=== PATIENT | male | born 1955 | race Caucasian/White ===

== ENCOUNTER → 2020-04-19 | Outpatient (CLI) | payer OTHER ==
[2020-04-19 16:06] LABS: BASOPHILS # (AUTO) 0.04 x10^3/uL (0-0.1); BASOPHILS % (AUTO) 1 % (0-1); EOSINOPHILS # (AUTO) 0.37 x10^3/uL (0-0.4); EOSINOPHILS % (AUTO) 4 % (1-7); LYMPHOCYTES # (AUTO) 2.54 x10^3/uL (1-3.4); LYMPHOCYTES % (AUTO) 27 % (22-44); MD NO; MEAN CORPUSCULAR HEMOGLOBIN 30.6 pg (27.5-34.5); MEAN CORPUSCULAR HGB CONC 33.2 g/dL (33.2-36.2); MEAN CORPUSCULAR VOLUME 92.1 fL (81-97); MEAN PLATELET VOLUME 8.5 fL (7.4-10.4); MONOCYTES % (AUTO) 10 % (2-9); NEUTROPHILS # (AUTO) 5.52 x10^3/uL (1.8-6.8); NEUTROPHILS % (AUTO) 59 % (42-75); PLATELET COUNT 270 x10^3/uL (130-400); RED BLOOD COUNT 4.64 x10^6/uL (4.38-5.82); RED CELL DISTRIBUTION WIDTH 13.2 % (9.4-14.8)
[2020-04-19 16:11] LABS: INTERNATIONAL NORMALIZED RATIO 1.06 (0.93-1.1); PROTHROMBIN TIME 10.9 Seconds (9.6-11.5)
[2020-04-19 16:15] LABS: ALANINE AMINOTRANSFERASE 30 U/L (12-78); ALBUMIN 3.8 g/dL (3.4-5.0); ANION GAP 6 mmol/L (5-15); CALCIUM 9.1 mg/dL (8.5-10.1); CHLORIDE 106 mmol/L (98-107); CREATININE 0.69 mg/dL (0.7-1.3)
[2020-04-19 16:18] LABS: ALKALINE PHOSPHATASE 58 U/L (45-117); BILIRUBIN,TOTAL 0.6 mg/dL (0.2-1.0); TOTAL PROTEIN 7.3 g/dL (6.4-8.2)
== END | disposition home or self-care (01) ==
LOC: STAR 14:32
PROVIDERS: ATTEND Orthopaedic Surgery
DX: Z01.818 Encounter for other preprocedural examination (principal); M16.11 Unilateral primary osteoarthritis, right hip; M25.551 Pain in right hip
CPT/HCPCS: 36415; 80053; 83036; 85025; 85610; 85730; 87081; 93005

== ENCOUNTER → 2020-04-21 | Outpatient (CLI) | payer OTHER | END | disposition home or self-care (01) | LOC: STAR 10:21 | PROVIDERS: ATTEND Orthopaedic Surgery | DX: Z01.818 Encounter for other preprocedural examination (principal); Z11.59 Encounter for screening for other viral diseases | CPT/HCPCS: 87635 ==

== ENCOUNTER 2020-04-26 06:49 | Observation (INO) | payer OTHER ==
[~2020-04-26] VITALS: Ht 172.7 cm; Wt 103.9 kg
[~2020-04-26 06:49] MED LIST: ACET-1600 PO; ALBU8.5H8 INH; ASCO500T8 PO; ASPI-496 PO; BUPR300T94 PO; CELE100C PO; CYAN-27 PO; EPINEPHRINE 1 MG/ML, 1ML ONE; FLUT9.9S NAS; GLIP10TA13 PO; INSU100I28 SL; INSU100I28 SQ; ISOS60TA36 PO; KETOROLAC 60 MG/2 ML ONE; LORA10TA75 PO; LOSA25TA25 PO; MAGN420T PO; METF10007 PO; METH750T2 PO; METO25TA91 PO; MONT10TA11 PO; MULT-449 PO; NITR0.4T28 SL; OXYC5CAP2 PO; PANT20TA3 PO; PREG75CA PO; PRIM50TA34 PO; ROPI2TAB8 PO; ROPIvacaine/PF 0.5%, 20 ML ONE; ROPIvacaine/PF 0.5%, 30 ML ONE; ROSU5TAB PO; SEMA1PEN SQ; SODIUM CHLORIDE 0.9% 50 ML ONE; TRAM50TA2 PO; TRANEXAMIC ACID 100 MG/ML, 10ML ONE; TRAZ-175 PO; VANCOMYCIN 1,000 MG ONE; [UNRECOGNIZED DRUG - OTHER] TP
[2020-04-26] MEDS ORDERED: ONDANSETRON 4 MG TABLET PO PRN (07:00)
[2020-04-26] MEDS ORDERED: SENNA/DOCUSATE TABLET PO PRN (07:00)
[2020-04-26] MEDS ORDERED: HYDROcodone/APAP 5/325 TABLET PO PRN (07:00)
[2020-04-26] MEDS: INSULIN GLARGINE 100 UNITS/ML, PEN SQ-INSULIN SCH ×2 (07:00→09:00)
[2020-04-26] MEDS ORDERED: PRIMIDONE 50 MG TABLET PO PRN (07:00)
[2020-04-26] MEDS ORDERED: ZOLPIDEM 5MG TABLET PO PRN (07:00)
[2020-04-26] MEDS ORDERED: LORATADINE 10 MG TABLET PO PRN (07:00)
[2020-04-26] MEDS ORDERED: BISACODYL 10 MG SUPP PR PRN (07:00)
[2020-04-26] MEDS: INSULIN LISPRO 100 UNITS/ML, PEN SQ-INSULIN SCH ×4 (07:00→21:13)
[2020-04-26] MEDS ORDERED: ONDANSETRON 2MG/ML, 2ML IV PRN (07:00)
[2020-04-26] MEDS ORDERED: ALBUTEROL HFA 90 MCG/SPRAY INH PRN (07:00)
[2020-04-26] MEDS ORDERED: MAGNESIUM HYDROXIDE 8%, 30ML UDC PO PRN (07:00)
[2020-04-26] MEDS ORDERED: NITROGLYCERIN SINGLE TAB 0.4 MG SL PRN (07:00)
[2020-04-26] MEDS ORDERED: ACETAMINOPHEN 650 MG/20.3 ML UDC PO PRN (07:00)
[2020-04-26] MEDS ORDERED: DIPHENHYDRAMINE 25 MG CAPSULE PO PRN (07:00)
[2020-04-26 07:41] VITALS: BP 111/69
[2020-04-26] MEDS ORDERED: CHLORHEXIDINE 15 ML UDC ONE (07:55)
[2020-04-26] MEDS ORDERED: ACETAMINOPHEN 500 MG TABLET ONE (07:55)
[2020-04-26] MEDS ORDERED: CEFAZOLIN 1,000 MG ONE (07:57)
[2020-04-26] MEDS ORDERED: ROCURONIUM 10MG/ML,5ML ONE (07:57)
[2020-04-26] MEDS ORDERED: SUCCINYLCHOLINE 20 MG/ML, 10ML ONE (07:57)
[2020-04-26] MEDS ORDERED: NEOSTIGMINE 1 MG/ML, 10ML ONE (07:57)
[2020-04-26] MEDS ORDERED: PROPOFOL 10 MG/ML, 20ML ONE (07:57)
[2020-04-26] MEDS ORDERED: ONDANSETRON 2MG/ML, 2ML ONE (07:57)
[2020-04-26] MEDS ORDERED: MIDAZOLAM 1 MG/ML, 2ML ONE (07:57)
[2020-04-26] MEDS ORDERED: DEXAMETHASONE 4 MG/ML, 1ML ONE (07:57)
[2020-04-26] MEDS ORDERED: FENTANYL PF 100 MCG/2ML ONE ×3 (07:57→10:40)
[2020-04-26] MEDS ORDERED: GLYCOPYRROLATE 0.2MG/1ML, 5ML ONE (07:57)
[2020-04-26] MEDS ORDERED: CHLORHEXIDINE 15 ML UDC MM ONE (08:00)
[2020-04-26] MEDS ORDERED: ACETAMINOPHEN 500 MG TABLET PO ONE (08:00)
[2020-04-26] MEDS ORDERED: LACTATED RINGERS 1,000 ML IV SCH (08:17)
[2020-04-26] MEDS: MONTELUKAST 10 MG TABLET PO SCH (09:00)
[2020-04-26] MEDS: LOSARTAN 25MG TABLET PO SCH (09:00)
[2020-04-26] MEDS: DOCUSATE 100 MG CAPSULE PO SCH ×2 (09:00→21:17)
[2020-04-26] MEDS: metFORMIN 500 MG TABLET PO SCH ×2 (09:00→21:17)
[2020-04-26] MEDS: PREGABALIN 75 MG CAPSULE PO SCH ×2 (09:00→21:15)
[2020-04-26] MEDS: PANTOPRAZOLE 20MG TABLET PO SCH (09:00)
[2020-04-26] MEDS: BUPROPION SR 150 MG TABLET PO SCH (09:00)
[2020-04-26] MEDS: FLUTICASONE NASAL SPRAY 16GM NAS SCH (09:00)
[2020-04-26] MEDS ORDERED: OXYcodone 5 MG/5 ML ORAL.SOL UDC PO PRN (09:00)
[2020-04-26] MEDS ORDERED: HYDROmorphone 1 MG/ML, 1ML INJ IVPush PRN (09:00)
[2020-04-26] MEDS: ISOSORBIDE MONONITRATE ER 60 MG TABLET PO SCH (09:00)
[2020-04-26] MEDS ORDERED: PROMETHAZINE 25 MG/ML, 1ML IVPush PRN (09:00)
[2020-04-26] MEDS: METOPROLOL SUCCINATE 25 MG TAB.ER.24H PO SCH ×2 (09:00→21:16)
[2020-04-26] MEDS ORDERED: MEPERIDINE/PF 25MG/0.5ML IVPush PRN (09:00)
[2020-04-26] MEDS ORDERED: SUGAMMADEX 200 MG/2 ML IVPush ONE (09:35)
[2020-04-26] MEDS ORDERED: EPHEDRINE 50 MG/ML, 1ML ONE (09:35)
[2020-04-26] MEDS: FENTANYL PF 100 MCG/2ML IV PRN ×4 (10:11→11:04)
[2020-04-26] MEDS ORDERED: OXYcodone 5 MG/5 ML ORAL.SOL UDC ONE (10:41)
[2020-04-26 12:01] VITALS: BP 116/72
[2020-04-26] MEDS: NS + 20MEQ KCL 1,000 ML IV SCH (13:02)
[2020-04-26] MEDS: CEFAZOLIN PMX 2GM/50ML 50 ML IVPB SCH (16:45)
[2020-04-26] MEDS: ASPIRIN 81 MG TABLET EC PO SCH (16:47)
[2020-04-26 19:24] VITALS: BP 109/65
[2020-04-26] MEDS ORDERED: INSULIN GLARGINE 100 UNITS/ML, PEN SQ-INSULIN SCH (21:00)
[2020-04-26] MEDS ORDERED: ATORVASTATIN 20 MG TABLET PO SCH (21:00)
[2020-04-26] MEDS ORDERED: TEMPLATE NON-FORMULARY MED. (Rosuvastatin Calcium** (Crestor**) 5 MG) PO SCH (21:00)
[2020-04-26] MEDS ORDERED: TRAZODONE 100MG TABLET PO SCH (21:00)
[2020-04-26] MEDS ORDERED: ROPINIROLE 1MG TABLET PO SCH (21:00)
[2020-04-26] MEDS: METHOCARBAMOL 750 MG TABLET PO PRN (21:15)
[2020-04-26] MEDS: OXYcodone IR 5MG TABLET PO PRN (21:18)
[2020-04-26 23:16] VITALS: BP 126/76
[2020-04-27] MEDS: CEFAZOLIN PMX 2GM/50ML 50 ML IVPB SCH (00:22)
[2020-04-27] MEDS: NS + 20MEQ KCL 1,000 ML IV SCH (00:24)
[2020-04-27] MEDS: OXYcodone IR 5MG TABLET PO PRN ×3 (01:17→10:50)
[2020-04-27 04:04] VITALS: BP 122/82
[2020-04-27] MEDS: METHOCARBAMOL 750 MG TABLET PO PRN (05:59)
[2020-04-27] MEDS: ASPIRIN 81 MG TABLET EC PO SCH (05:59)
[2020-04-27] MEDS: INSULIN LISPRO 100 UNITS/ML, PEN SQ-INSULIN SCH ×2 (06:47→11:00)
[2020-04-27] MEDS: ISOSORBIDE MONONITRATE ER 60 MG TABLET PO SCH (08:28)
[2020-04-27] MEDS: MONTELUKAST 10 MG TABLET PO SCH (08:28)
[2020-04-27] MEDS: LOSARTAN 25MG TABLET PO SCH (08:28)
[2020-04-27] MEDS: PREGABALIN 75 MG CAPSULE PO SCH (08:28)
[2020-04-27] MEDS: BUPROPION SR 150 MG TABLET PO SCH (08:28)
[2020-04-27] MEDS: METOPROLOL SUCCINATE 25 MG TAB.ER.24H PO SCH (08:29)
[2020-04-27] MEDS: metFORMIN 500 MG TABLET PO SCH (08:29)
[2020-04-27] MEDS: DOCUSATE 100 MG CAPSULE PO SCH (08:29)
[2020-04-27] MEDS: FLUTICASONE NASAL SPRAY 16GM NAS SCH (09:00)
[2020-04-27 09:28] VITALS: BP 113/69
[2020-04-27] MEDS: PANTOPRAZOLE 20MG TABLET PO SCH (09:50)
[2020-04-27] MEDS ORDERED: OXYC5TAB3 PO (10:03)
[2020-04-27] MEDS ORDERED: TRAM50TA2 PO (10:04)
[2020-04-27] MEDS: INSULIN GLARGINE 100 UNITS/ML, PEN SQ-INSULIN SCH (10:10)
== END 2020-04-27 11:38 | disposition home or self-care (01) ==
LOC: OUT 06:49 → 4NE 11:51 → OUT 20:50 → 4NE 20:50 → DCLOUNGE 04-27 11:15
PROVIDERS: ADMIT Orthopaedic Surgery; ATTEND Orthopaedic Surgery
DX: M16.11 Unilateral primary osteoarthritis, right hip (principal); J44.9 Chronic obstructive pulmonary disease, unspecified; E11.9 Type 2 diabetes mellitus without complications; I25.10 Atherosclerotic heart disease of native coronary artery without angina pectoris; G47.30 Sleep apnea, unspecified; I25.2 Old myocardial infarction; Z87.891 Personal history of nicotine dependence; Z79.899 Other long term (current) drug therapy
CPT/HCPCS: 27130; 36415; 72170; 73502; 76000; 82962; 85014; 85018; 96361; 96365; 96366; 97161; 97165; C1713; C1776; G0378; J0171; J0330; J0690; J1100; J1815; J1885; J2250; J2405; J2704; J2710; J2795; J3010; J3370; J3480; J7120